=== PATIENT | male | born 1995 | race Two or more races ===

== ENCOUNTER 2021-11-14 14:33 | Emergency (ER) | payer OTHER ==
[~2021-11-14] VITALS: Ht 172.7 cm; Wt 99.8 kg
[2021-11-14] MEDS ORDERED: TUSNEL LIQUID178 ML PO (18:55)
[2021-11-14] MEDS ORDERED: MEDROLPACK PO (18:56)
[2021-11-14] MEDS ORDERED: DOLOGEN 325-11 EACH PO (18:56)
== END 2021-11-14 19:29 | disposition home or self-care (01) ==
LOC: ER 14:33
DX: U07.1 COVID-19 (principal)